=== PATIENT | female | born 1995 | race Two or more races ===

== ENCOUNTER 2018-08-22 20:18 | Emergency (ER) | payer SELFPAY ==
[~2018-08-22] VITALS: Ht 165.1 cm; Wt 104.3 kg
[~2018-08-22 20:18] MED LIST: PNV1TABL25 PO
--- NOTE | 2018-08-22 20:49 | PHYS DOC ---
Past Medical History Past Surgical History: Cholecystectomy Alcohol Use: None Drug Use: None Adult General Chief Complaint Chief Complaint: ABDOMINAL PAIN IN HPI HPI Patient is a 22 year old female who presents with vaginal bleeding and lower abdominal pain [personally 1700 this evening. Patient reports that she is approximately 12 weeks has had 1 OB appointment. Patient reports that she is 3 para 1 with an elective termination approximately 3 years ago. Her child is healthy, doing well. Patient notes that she's had some dysuria off or proximally the past week with some right flank pain. She also notes that she threw up this evening but she has been throwing up a lot during this . And so she did not think anything about this evening's episode of emesis. Patient reports the pain is moderate in intensity. She has taken no medication to help with the discomfort. Patient does not know what her blood type is, she does not recall having received any medication such as rhogam.[] Review of Systems Review of Systems Constitutional: Denies fever or chills [] Eyes: Denies change in visual acuity, redness, or eye pain [] HENT: Denies nasal congestion or sore throat [] Respiratory: Denies cough or shortness of breath [] Cardiovascular: No chest pain or palpitation[] GI: Denies abdominal pain, nausea, vomiting, bloody stools or diarrhea [] : Denies hematuria, see history of present illness[] Musculoskeletal: Denies back pain or joint pain [] Integument: Denies rash or skin lesions [] Neurologic: Denies headache, focal weakness or sensory changes [] Endocrine: Denies polyuria or polydipsia [] All other systems were reviewed and found to be within normal limits, except as documented in this note. Current Medications Current Medications vitamins Allergies Allergies Allergies Coded Allergies Type Severity Reaction Last Updated Verified No Known Drug Allergies 03/23/15 No Physical Exam Physical Exam Constitutional: Well developed, well nourished, no acute distress, non-toxic appearance. [] HENT: Normocephalic, atraumatic, bilateral external ears normal, oropharynx moist, no oral exudates, nose normal. [] Eyes: PERRLA, EOMI, conjunctiva normal, no discharge. [] Neck: Normal range of motion, no tenderness, supple, no stridor. [] Cardiovascular:Heart rate regular rhythm, no murmur [] Lungs & Thorax: Bilateral breath sounds clear to auscultation [] Abdomen: Bowel sounds normal, soft, no tenderness, no masses, no pulsatile masses. exam: External genitalia, [place]'s, urethra, [place]'s: normal. Vaginal vault: There is blood in the vault. Cervix shows a closed cervix with mild blood from the cervical os. No cervical motion tenderness.[] Skin: Warm, dry, no erythema, no rash. [] Back: No tenderness, no CVA tenderness. [] Extremities: No tenderness, no cyanosis, no clubbing, ROM intact, no edema. [] Neurologic: Alert and oriented X 3, normal motor function, normal sensory function, no focal deficits noted. [] Psychologic: Affect normal, judgement normal, mood normal. [] Current Patient Data Vital Signs Vital Signs Date Time Temp Pulse Resp B/P (MAP) Pulse Ox O2 Delivery O2 Flow Rate FiO2 08/22/18 20:20 98.8 67 20 116/56 (76) 99 Room Air 98.8 Lab Values Laboratory Tests Test 08/22/18 20:45 08/22/18 21:15 White Blood Count 13.0 x10^3/uL (4.0-11.0) H Red Blood Count 3.53 x10^6/uL (3.50-5.40) Hemoglobin 10.6 g/dL (12.0-15.5) L Hematocrit 30.8 % (36.0-47.0) L Mean Corpuscular Volume 87 fL (79-100) Mean Corpuscular Hemoglobin 30 pg (25-35) Mean Corpuscular Hemoglobin Concent 35 g/dL (31-37) Red Cell Distribution Width 13.4 % (11.5-14.5) Platelet Count 242 x10^3/uL (140-400) Neutrophils (%) (Auto) 85 % (31-73) H Lymphocytes (%) (Auto) 10 % (24-48) L Monocytes (%) (Auto) 5 % (0-9) Eosinophils (%) (Auto) 0 % (0-3) Basophils (%) (Auto) 1 % (0-3) Neutrophils # (Auto) 11.0 x10^3uL (1.8-7.7) H Lymphocytes # (Auto) 1.3 x10^3/uL (1.0-4.8) Monocytes # (Auto) 0.6 x10^3/uL (0.0-1.1) Eosinophils # (Auto) 0.0 x10^3/uL (0.0-0.7) Basophils # (Auto) 0.1 x10^3/uL (0.0-0.2) Prothrombin Time 13.6 SEC (11.7-14.0) Prothrombin Time INR 1.1 (0.8-1.1) PTT 22 SEC (24-38) L Maternal Serum HCG Beta Subunit 53288 mIU/mL (0-5) H Sodium Level 138 mmol/L (136-145) Potassium Level 3.8 mmol/L (3.5-5.1) Chloride Level 101 mmol/L (98-107) Carbon Dioxide Level 25 mmol/L (21-32) Anion Gap 12 (6-14) Blood Urea Nitrogen 10 mg/dL (7-20) Creatinine 0.7 mg/dL (0.6-1.0) Estimated GFR (Cockcroft-Gault) 102.8 BUN/Creatinine Ratio 14 (6-20) Glucose Level 112 mg/dL (70-99) H Calcium Level 8.6 mg/dL (8.5-10.1) Total Bilirubin 0.3 mg/dL (0.2-1.0) Aspartate Amino Transferase (AST) 17 U/L (15-37) Alanine Aminotransferase (ALT) 23 U/L (14-59) Alkaline Phosphatase 53 U/L (46-116) Total Protein 6.9 g/dL (6.4-8.2) Albumin 3.2 g/dL (3.4-5.0) L Albumin/Globulin Ratio 0.9 (1.0-1.7) L Urine Collection Type U cath Urine Color Yellow Urine Clarity Cloudy Urine pH 6.5 Urine Specific [place] 1.020 Urine Protein 100 mg/dL (NEG-TRACE) Urine Glucose (UA) Negative mg/dL (NEG) Urine Ketones (Stick) 15 mg/dL (NEG) Urine Blood Small (NEG) Urine Nitrite Negative (NEG) Urine Bilirubin Negative (NEG) Urine Urobilinogen Dipstick 1.0 mg/dL (0.2 mg/dL) Urine Leukocyte Esterase Small (NEG) Urine RBC 1-2 /HPF (0-2) Urine WBC 5-10 /HPF (0-4) Urine Squamous Epithelial Cells Mod /LPF Urine Transitional Epithelial Cells Mod /LPF Urine Bacteria Moderate /HPF (0-FEW) Urine Hyaline Casts Moderate /HPF Urine Mucus Marked /LPF Laboratory Tests 08/22/18 20:45 Laboratory Tests 08/22/18 20:45 EKG EKG [] Radiology/Procedures Radiology/Procedures Pelvic ultrasound showed: 1. Heterogeneous thickened endometrial stripe measuring 2.4 cm. No intrauterine gestational sac is seen. Correlate with serial beta hCG levels. The differential includes both chronic as well as early miscarriage given a history of vaginal bleeding. No ectopic gestational sac is seen on this exam. 2. Small amount of nonspecific right adnexal pelvic free fluid. 3. Suspected small uterine fibroid.[] Course & Med Decision Making Course & Med Decision Making Pertinent Labs and Imaging studies reviewed. (See chart for details) ED course: Patient arrived by EMS and was transported to our bed without any complications. Patient tolerated exam and ultrasound without any complications. After the return of the lab and imaging findings, the findings were discussed with the patient via certified court/medical interpreter. All questions were answered. Medical decision making: This appears to be a miscarriage in progress, this does not appear to be a septic miscarriage nor evidence of an ectopic . There also appears to be a urinary tract infection. We will treat this. On review of patient's blood type from 06/01/2015, she was noted to be a positive at that time. There is no need for Rhogam at this time.[] Dragon Disclaimer Dragon Disclaimer This electronic medical record was generated, in whole or in part, using a voice recognition dictation system. Departure Departure Impression: Primary Impression: Threatened miscarriage Additional Impression: Urinary tract infection Disposition: HOME, SELF-CARE Condition: GOOD Referrals: NO PCP (PCP) Patient Instructions: Threatened Miscarriage Additional Instructions: Drink plenty of fluids. Follow-up with your regular doctor/[facility] in 48 hours. Your quantitative level today was [phone]. This should be followed by your [facility] doctor to see which direction it goes. Take medication as prescribed. Return to the ER if soaking more than a pad an hour for 3 consecutive hours, or any other concerns Scripts Cephalexin (KEFLEX) 500 Mg Capsule 500 MG PO QID, #40 CAP Prov: DIANA CHANDRA DO 08/22/18 Acetaminophen With Codeine (TYLENOL WITH CODEINE #3 TABLET) 1 Each Tablet 1 TAB PO PRN Q4HRS PRN for PAIN, #20 TAB Prov: DIANA CHANDRA DO 08/22/18 Problem Qualifiers DIANA CHANDRA DO Aug 22, 2018 20:49
[2018-08-22 20:57] LABS: BASO # 0.1 x10^3/uL (0.0-0.2); BASO % 1 % (0-3); EOS % 0 % (0-3); HEMATOCRIT 30.8 % (36.0-47.0); HEMOGLOBIN 10.6 g/dL (12.0-15.5); LYMPH # 1.3 x10^3/uL (1.0-4.8); LYMPH % 10 % (24-48); MEAN CORPUSCULAR HEMOGLOBIN 30 pg (25-35); MEAN CORPUSCULAR HGB CONC 35 g/dL (31-37); MEAN CORPUSCULAR VOLUME 87 fL (79-100); MONO # 0.6 x10^3/uL (0.0-1.1); MONO % 5 % (0-9); NEUT % 85 % (31-73); PLATELET COUNT 242 x10^3/uL (140-400); RED BLOOD COUNT 3.53 x10^6/uL (3.50-5.40); RED CELL DISTRIBUTION WIDTH 13.4 % (11.5-14.5)
[2018-08-22 21:06] LABS: PROTHROMBIN TIME PATIENT 13.6 SEC (11.7-14.0)
[2018-08-22 21:07] LABS: CALCIUM 8.6 mg/dL (8.5-10.1); CREATININE 0.7 mg/dL (0.6-1.0); GFR 102.8; POTASSIUM 3.8 mmol/L (3.5-5.1)
[2018-08-22 21:13] LABS: ALBUMIN 3.2 g/dL (3.4-5.0); ALBUMIN/GLOBULIN RATIO 0.9 (1.0-1.7); TOTAL BILIRUBIN 0.3 mg/dL (0.2-1.0); TOTAL PROTEIN 6.9 g/dL (6.4-8.2)
[2018-08-22 21:29] LABS: BILIRUBIN,URINE NEGATIVE (NEG); CLARITY,URINE CLOUDY; COLOR,URINE YELLOW; NITRITE,URINE NEGATIVE (NEG); PH,URINE 6.5; PROTEIN,URINE 100 mg/dL (NEG-TRACE)
[2018-08-22 21:51] LABS: BACTERIA,URINE MODERATE /HPF (0-FEW); HYALINE CASTS, URINE MODERATE /HPF; SQUAMOUS EPITHELIAL CELL,UR MOD /LPF
--- NOTE | 2018-08-22 22:00 | RAD ---
EXAM: Obstetrics sonogram. HISTORY: Bleeding and pain. TECHNIQUE: Sonographic imaging of the pelvis was performed. COMPARISON: None. FINDINGS: The uterus measures 13.5 x 6.3 x 6.4 cm. The cervix is closed and measures 6.4 cm in length. There a heterogeneous thickened endometrial stripe measuring 2.4 cm. No intrauterine gestational sac is seen. The ovaries are normal in size and demonstrate normal blood flow. There are small amount of right adnexal free fluid. There is a suspected fibroid within the right uterine fundus measuring 2.0 cm. IMPRESSION: 1. Heterogeneous thickened endometrial stripe measuring 2.4 cm. No intrauterine gestational sac is seen. Correlate with serial beta hCG levels. The differential includes both chronic as well as early miscarriage given a history of vaginal bleeding. No ectopic gestational sac is seen on this exam. 2. Small amount of nonspecific right adnexal pelvic free fluid. 3. Suspected small uterine fibroid. Electronically signed by: Suyapa Reyez MD (08/22/2018 9:56 PM) [facility]
[2018-08-22] MEDS ORDERED: CEPH-264 PO (22:35)
[2018-08-22] MEDS ORDERED: ACET-704 PO (22:35)
[2018-08-22 23:00] VITALS: BP 116/67
[2018-08-24 14:34] LABS: GC PROBE Negative (Negative)
== END 2018-08-22 23:34 | disposition home or self-care (01) ==
LOC: ER 20:18
DX: O20.0 Threatened abortion (principal); O23.41 Unspecified infection of urinary tract in pregnancy, first trimester; Z90.49 Acquired absence of other specified parts of digestive tract; Z3A.12 12 weeks gestation of pregnancy
CPT/HCPCS: 36415; 76801; 76817; 80053; 81001; 84702; 85025; 85610; 85730; 87086; 87491; 87591; 99285; Q0111